=== PATIENT | male | born 1960 | race African-American/Black ===

== ENCOUNTER 2018-01-07 07:16 | Emergency (ER) | payer MEDICAID, OTHER ==
[~2018-01-07] VITALS: Ht 177.8 cm; Wt 90.5 kg
[~2018-01-07 07:16] MED LIST: ASPI81 PO; ATOR20TA86 PO; CARV6 PO; LISI-622 PO
[2018-01-07 08:18] LABS: BASOPHILS % (AUTO) 0.8 % (0.0-2.0); EOSINOPHILS % (AUTO) 2.3 % (1.0-6.0); HEMATOCRIT 47.9 % (41-53); HEMOGLOBIN 16.7 g/dL (13.5-17.5); LYMPHOCYTES # (AUTO) 2.4 K/uL (1.0-4.8); LYMPHOCYTES % (AUTO) 27.8 % (22.0-44.0); MEAN CORPUSCULAR HEMOGLOBIN 29.9 pg (26.0-34.0); MEAN CORPUSCULAR HGB CONC 34.9 G/dL (31.0-37.0); MEAN CORPUSCULAR VOLUME 86 fL (80-100); MONOCYTES # (AUTO) 0.5 K/uL (0.1-1.0); MONOCYTES % (AUTO) 6.2 % (2.0-9.0); NEUTROPHILS # (AUTO) 5.4 K/uL (1.8-7.7); NEUTROPHILS % (AUTO) 62.9 % (40.0-70.0); RED BLOOD CELL COUNT(AUTO) 5.59 MIL/uL (4.50-5.90); RED CELL DISTRIBUTION WIDTH 14.7 % (11.5-14.5)
[2018-01-07 08:28] LABS: ANION GAP 9 mmol/L (8-16); CALCIUM, TOTAL 9.2 mg/dL (8.8-10.5); CARBON DIOXIDE 29 mmol/L (22-29); CHLORIDE 103 mmol/L (98-107); CREATININE 1.11 mg/dL (0.60-1.30); GLOMERULAR FILTR. RATE CALC > 60 mL/min (>60); GLUCOSE,RANDOM 113 mg/dL (70-110); POTASSIUM 4.5 mmol/L (3.5-5.1); SODIUM SERUM 141 mmol/L (136-145); UREA NITROGEN, BLOOD 15 mg/dL (7-18)
[2018-01-07 08:34] LABS: ALANINE AMINOTRANSFERASE 43 U/L (12-78); ALBUMIN 4.1 g/dL (3.4-5.0); ALKALINE PHOSPHATASE 48 U/L (46-116); ASPARTATE AMINOTRANSFERASE 28 U/L (15-37); BILIRUBIN,TOTAL 0.7 mg/dL (0.1-1.0); PLATELET COUNT (AUTO) 168 K/uL (150-450)
[2018-01-07 08:38] VITALS: BP 139/86
== END 2018-01-07 08:55 | disposition home or self-care (01) ==
LOC: EMS 07:20
DX: R42 Dizziness and giddiness (principal); I10 Essential (primary) hypertension; E78.00 Pure hypercholesterolemia, unspecified; I25.2 Old myocardial infarction
CPT/HCPCS: 93005; 99285

== ENCOUNTER 2018-06-15 08:00 | Emergency (ER) | payer MEDICAID ==
[~2018-06-15] VITALS: Ht 175.3 cm; Wt 90.9 kg
[2018-06-15] MEDS ORDERED: LISI-660 PO (08:07)
[2018-06-15] MEDS ORDERED: CARV6 PO (08:07)
[2018-06-15 09:19] VITALS: BP 150/90
== END 2018-06-15 09:21 | disposition home or self-care (01) ==
LOC: EMS 08:01
DX: I10 Essential (primary) hypertension (principal); E78.00 Pure hypercholesterolemia, unspecified; I25.2 Old myocardial infarction; F12.90 Cannabis use, unspecified, uncomplicated; Z76.0 Encounter for issue of repeat prescription
CPT/HCPCS: 99283

== ENCOUNTER 2018-08-05 05:30 | Emergency (ER) | payer MEDICAID ==
[~2018-08-05] VITALS: Ht 177.8 cm; Wt 90.9 kg
[~2018-08-05 05:30] MED LIST changes: -ATOR20TA86 PO; -LISI-622 PO; +LISI-660 PO
[2018-08-05 06:32] LABS: EOSINOPHILS % (AUTO) 3.9 % (1.0-6.0); HEMATOCRIT 45.4 % (41-53); HEMOGLOBIN 15.6 g/dL (13.5-17.5); LYMPHOCYTES # (AUTO) 5.3 K/uL (1.0-4.8); LYMPHOCYTES % (AUTO) 48.2 % (22.0-44.0); MEAN CORPUSCULAR HEMOGLOBIN 30.2 pg (26.0-34.0); MEAN CORPUSCULAR HGB CONC 34.5 G/dL (31.0-37.0); MEAN CORPUSCULAR VOLUME 88 fL (80-100); MONOCYTES # (AUTO) 0.9 K/uL (0.1-1.0); MONOCYTES % (AUTO) 8.2 % (2.0-9.0); NEUTROPHILS # (AUTO) 4.3 K/uL (1.8-7.7); NEUTROPHILS % (AUTO) 38.7 % (40.0-70.0); PLATELET COUNT (AUTO) 167 K/uL (150-450); RED BLOOD CELL COUNT(AUTO) 5.17 MIL/uL (4.50-5.90); RED CELL DISTRIBUTION WIDTH 14.5 % (11.5-14.5)
[2018-08-05 06:44] LABS: PROTHROMBIN TIME 10.3 SEC (9.4-11.6)
[2018-08-05 06:48] LABS: ANION GAP 10 mmol/L (8-16); CALCIUM, TOTAL 9.2 mg/dL (8.8-10.5); CARBON DIOXIDE 25 mmol/L (22-29); CHLORIDE 103 mmol/L (98-107); CREATININE 1.18 mg/dL (0.60-1.30); GLOMERULAR FILTR. RATE CALC > 60 mL/min (>60); GLUCOSE,RANDOM 116 mg/dL (70-110); POTASSIUM 4.2 mmol/L (3.5-5.1); SODIUM SERUM 138 mmol/L (136-145); UREA NITROGEN, BLOOD 25 mg/dL (7-18)
[2018-08-05 07:02] LABS: B-TYPE NATRIURETIC PEPTIDE 73 pg/mL (0-100)
[2018-08-05 07:13] LABS: ALANINE AMINOTRANSFERASE 38 U/L (12-78); ALBUMIN 3.9 g/dL (3.4-5.0); ALKALINE PHOSPHATASE 51 U/L (46-116); ASPARTATE AMINOTRANSFERASE 24 U/L (15-37); BILIRUBIN,TOTAL 0.4 mg/dL (0.1-1.0); CREATINE KINASE MB 2.3 ng/mL (0-5); CREATINE KINASE, TOTAL ONLY 170 U/L (39-308); TOTAL PROTEIN, SERUM 8.1 g/dL (6.4-8.2)
[2018-08-05 07:55] LABS: APPEARANCE,URINE CLEAR (CLEAR); BILIRUBIN,URINE NEGATIVE (NEGATIVE); GLUCOSE, URINE (UA) NEGATIVE (NEGATIVE); KETONES,URINE NEGATIVE (NEGATIVE); LEUKOCYTE ESTERASE ,URINE NEGATIVE (NEGATIVE); NITRATE,URINE NEGATIVE (NEGATIVE); OCCULT BLOOD,URINE NEGATIVE (NEGATIVE); PH,URINE 5.5 (5.0-8.0); PROTEIN,URINE NEGATIVE (NEGATIVE); UROBILINOGEN,URINE 0.2 mg/dL (<=1.0)
[2018-08-05 09:30] VITALS: BP 137/85
[2018-08-05] MEDS ORDERED: IOVERSOL 350 MG/ML 100 ML VIAL ONE (09:31)
[2018-08-05] MEDS ORDERED: SODIUM CHLORIDE 0.9% 100 ML ONE (09:31)
[2018-08-05] MEDS ORDERED: MECLIZINE HCL 25 MG TABLET PO ONE (13:00)
== END 2018-08-05 14:07 | disposition home or self-care (01) ==
LOC: EMS 05:31
DX: R42 Dizziness and giddiness (principal); E78.00 Pure hypercholesterolemia, unspecified; I10 Essential (primary) hypertension; I25.2 Old myocardial infarction; R79.89 Other specified abnormal findings of blood chemistry; F12.90 Cannabis use, unspecified, uncomplicated; Z79.899 Other long term (current) drug therapy; Z79.01 Long term (current) use of anticoagulants
CPT/HCPCS: 36415; 70496; 71045; 80053; 81003; 82550; 82553; 83880; 84484; 85025; 85730; 85610; 93005; 99285; J7050; Q9967

== ENCOUNTER 2023-05-06 01:53 | Inpatient (IN) | payer MEDICAID ==
[~2023-05-06] VITALS: Ht 175.3 cm; Wt 80.0 kg
[~2023-05-06 01:53] MED LIST changes: +ASPI-1450 PO; -ASPI81 PO; -LISI-660 PO; +LISI-892 PO
[2023-05-06 03:14] LABS: BASOPHILS % (AUTO) 0.8 % (0.0-2.0); EOSINOPHILS % (AUTO) 3.4 % (1.0-6.0); HEMATOCRIT 45.8 % (41-53); HEMOGLOBIN 15.8 g/dL (13.5-17.5); LYMPHOCYTES % (AUTO) 33.6 % (22.0-44.0); MEAN CORPUSCULAR HEMOGLOBIN 30.9 pg (26.0-34.0); MEAN CORPUSCULAR HGB CONC 34.4 G/dL (31.0-37.0); MEAN CORPUSCULAR VOLUME 90 fL (80-100); MONOCYTES # (AUTO) 0.8 K/uL (0.1-1.0); MONOCYTES % (AUTO) 8.5 % (2.0-9.0); NEUTROPHILS # (AUTO) 4.9 K/uL (1.8-7.7); NEUTROPHILS % (AUTO) 53.7 % (40.0-70.0); PLATELET COUNT (AUTO) 170 K/uL (150-450); RED BLOOD CELL COUNT(AUTO) 5.09 MIL/uL (4.50-5.90); RED CELL DISTRIBUTION WIDTH 14.5 % (11.5-14.5)
[2023-05-06 03:22] LABS: ANION GAP 5 mmol/L (8-16); CALCIUM, TOTAL 9.1 mg/dL (8.8-10.5); CARBON DIOXIDE 30 mmol/L (22-29); CHLORIDE 103 mmol/L (98-107); CREATININE 1.28 mg/dL (0.60-1.30); GLOMERULAR FILTR. RATE CALC > 60 mL/min (>60); GLUCOSE,RANDOM 132 mg/dL (70-110); POTASSIUM 4.1 mmol/L (3.5-5.1); SODIUM SERUM 138 mmol/L (136-145)
[2023-05-06 03:31] LABS: ALANINE AMINOTRANSFERASE 30 U/L (12-78); ALBUMIN 3.8 g/dL (3.4-5.0); ALKALINE PHOSPHATASE 55 U/L (46-116); ASPARTATE AMINOTRANSFERASE 23 U/L (15-37); BILIRUBIN,TOTAL 0.3 mg/dL (0.1-1.0); CREATINE KINASE, TOTAL ONLY 196 U/L (39-308); LIPASE 184 U/L (73-393); TOTAL PROTEIN, SERUM 7.9 g/dL (6.4-8.2)
[2023-05-06 03:39] LABS: B-TYPE NATRIURETIC PEPTIDE 133 pg/mL (0-100)
[2023-05-06] MEDS ORDERED: ASPIRIN 81 MG CHEWABLE TABLET PO ONE (03:45)
[2023-05-06] MEDS ORDERED: NITROGLYCERIN 2% (1 GM=INCH) OINTMENT PACKET TP ONE (03:45)
[2023-05-06] MEDS ORDERED: 0.9% SODIUM CHLORIDE 10 ML SYRINGE IVP PRN (04:00)
[2023-05-06] MEDS ORDERED: ONDANSETRON HCL 4 MG/2 ML VIAL IVP PRN ×2 (04:00→08:00)
[2023-05-06] MEDS ORDERED: ACETAMINOPHEN 325 MG TABLET PO PRN ×2 (04:00→08:00)
[2023-05-06 04:25] LABS: D-DIMER 0.43 mg/L FEU (0.00-0.50); PROTHROMBIN TIME 10.3 SEC (9.4-11.6)
[2023-05-06 05:08] LABS: APPEARANCE,URINE CLEAR (CLEAR); BILIRUBIN,URINE NEGATIVE (NEGATIVE); GLUCOSE, URINE (UA) NEGATIVE (NEGATIVE); KETONES,URINE NEGATIVE (NEGATIVE); LEUKOCYTE ESTERASE ,URINE NEGATIVE (NEGATIVE); NITRATE,URINE NEGATIVE (NEGATIVE); OCCULT BLOOD,URINE NEGATIVE (NEGATIVE); PROTEIN,URINE NEGATIVE (NEGATIVE); SPECIFIC GRAVITIY, URINE 1.011 (1.003-1.030); UROBILINOGEN,URINE <=1.0 mg/dL (<=1.0)
[2023-05-06 05:14] LABS: AMPHET/METH SCREEN,URINE NEGATIVE (NEGATIVE); BARBITURATE SCREEN, URINE NEGATIVE (NEGATIVE); BENZODIAZEPINES SCREEN,URINE NEGATIVE (NEGATIVE); CANNABINOID SCREEN,URINE NEGATIVE (NEGATIVE); COCAINE SCREEN,URINE NEGATIVE (NEGATIVE); METHADONE SCREEN, URINE NEGATIVE (NEGATIVE); OPIATE SCREEN,URINE NEGATIVE (NEGATIVE); PHENCYCLIDINE SCREEN,URINE NEGATIVE (NEGATIVE)
[2023-05-06 05:29] LABS: COVID AG,FIA SOURCE NASAL SWAB
[2023-05-06] MEDS: HEPARIN SODIUM,PORCINE 5,000 UNITS/ML VIAL SQ SCH ×2 (08:00→16:00)
[2023-05-06 08:26] VITALS: BP 149/108; PULSE 93; RESP 18; TEMP 98
[2023-05-06] MEDS: DOCUSATE SODIUM 100 MG CAPSULE PO SCH ×2 (09:00→21:00)
[2023-05-06] MEDS: CARVEDILOL 6.25 MG TABLET PO SCH ×2 (09:05→21:27)
[2023-05-06] MEDS: FAMOTIDINE 20 MG TABLET PO SCH (09:05)
[2023-05-06] MEDS: LISINOPRIL 10 MG TABLET PO SCH (09:05)
[2023-05-06 13:08] VITALS: BP 142/100; PULSE 82; RESP 19; TEMP 97.9
[2023-05-06 14:55] VITALS: BP 127/83; PULSE 77; RESP 18; TEMP 98.2
[2023-05-06 20:45] VITALS: BP 126/96; PULSE 73; RESP 18; TEMP 98.1
[2023-05-07 00:54] VITALS: BP 127/84; PULSE 71; RESP 18; TEMP 98
[2023-05-07 05:17] VITALS: BP 110/74; PULSE 75; RESP 18; TEMP 97.9
[2023-05-07 07:38] VITALS: BP 124/82; PULSE 64; RESP 18; TEMP 98.4
[2023-05-07] MEDS: HEPARIN SODIUM,PORCINE 5,000 UNITS/ML VIAL SQ SCH ×2 (08:00)
[2023-05-07] MEDS: FAMOTIDINE 20 MG TABLET PO SCH (08:24)
[2023-05-07] MEDS: LISINOPRIL 10 MG TABLET PO SCH (08:25)
[2023-05-07] MEDS: CARVEDILOL 6.25 MG TABLET PO SCH (08:25)
[2023-05-07] MEDS: DOCUSATE SODIUM 100 MG CAPSULE PO SCH (08:27)
== END 2023-05-07 12:45 | disposition home or self-care (01) | DRG 243 ==
LOC: EMS 01:55 → 5S 05:21
PROVIDERS: ADMIT Internal Medicine; ATTEND Internal Medicine
DX: K21.9 Gastro-esophageal reflux disease without esophagitis (principal); I47.20 Ventricular tachycardia, unspecified; I20.9 Angina pectoris, unspecified; Z20.822 Contact with and (suspected) exposure to COVID-19; F12.90 Cannabis use, unspecified, uncomplicated; I11.9 Hypertensive heart disease without heart failure; E66.9 Obesity, unspecified; E78.00 Pure hypercholesterolemia, unspecified; G47.33 Obstructive sleep apnea (adult) (pediatric); R77.8 Other specified abnormalities of plasma proteins; Z68.26 Body mass index [BMI] 26.0-26.9, adult; Z79.899 Other long term (current) drug therapy; Z79.82 Long term (current) use of aspirin; I25.2 Old myocardial infarction
CPT/HCPCS: 80053; 80307; 81003; 82550; 83690; 83735; 83880; 84484; 85025; 85379; 85610; 85730; 93005; 93306; 99291

== ENCOUNTER → 2024-03-12 | Emergency (ER) | payer MEDICAID, OTHER ==
[~2024-03-12] VITALS: Ht 175.3 cm; Wt 94.9 kg
[~2024-03-12] MED LIST changes: +ATOR20TA65 PO
[2024-03-12 19:21] VITALS: BP 124/75; PULSE 75; RESP 18; TEMP 98.1
== END | disposition still patient (30) ==
LOC: EMS 19:20
DX: I10 Essential (primary) hypertension (principal); E78.00 Pure hypercholesterolemia, unspecified; F12.90 Cannabis use, unspecified, uncomplicated; Z76.0 Encounter for issue of repeat prescription
CPT/HCPCS: 99281; Z7502